=== PATIENT | male | born 1930 | race Caucasian/White ===

== ENCOUNTER 2016-05-11 17:42 | Emergency (ER) | payer MEDICARE, OTHER ==
[2016-05-11 17:43] VITALS: BMI 25.7
[2016-05-11 18:11] VITALS: TEMP 97.8
[2016-05-11] MEDS ORDERED: MORPHINE 4 MG/ML INJECTION IV ONE (18:16)
[2016-05-11] MEDS ORDERED: ONDANSETRON HCL 4 MG/2 ML VIAL IV ONE (18:16)
--- NOTE | 2016-05-11 18:45 | EDPRACDOC ---
- General Information Chief Complaint: Generalized Weakness Stated Complaint: RIB PAIN/WEAKNESS Time Seen by Provider: 05/11/16 18:01 Information Source: Patient, Administrative Office Manager Mode Of Arrival: Ambulance Home Medications: Home Medications Clopidogrel Bisulfate [Plavix] 75 mg PO HS 03/26/12 Rosuvastatin [Crestor] 10 mg PO HS 03/26/12 Ipratropium/Albuterol Sulfate [Combivent Inhaler] 1 puff INH QID PRN 05/27/12 Prednisone 5 mg PO DAILY 08/04/12 Nitroglycerin [Nitrostat] 0.4 mg SL Q5MX3 PRN 12/20/12 Albuterol/Ipratropium Neb [Duoneb] 3 ml NEB Q6H PRN 05/06/16 Aripiprazole [Abilify] 1 mg PO BID 05/06/16 Budesonide [Pulmicort] 0.5 mg INH BID PRN 05/06/16 Diltiazem HCl [Diltiazem ER] 120 mg PO HS 05/06/16 Ergocalciferol (Vitamin D2) [Vitamin D] 50,000 units PO Mo@0900 05/06/16 Guaifenesin [Humabid, Mucinex] 600 mg PO BID 05/06/16 Levothyroxine [Synthroid, Levoxyl] 88 mcg PO DAILY 05/06/16 Metoprolol Tartrate [Lopressor] 25 mg PO BID 05/06/16 Mirtazapine [Remeron] 30 mg PO HS 05/06/16 Nebulizer [Erapid Nebulizer] 1 each MC .UNKNOWN 05/06/16 Amoxicillin/Clavulanate Potas. [Augmentin] 875 mg PO BID 05/11/16 Hydrocodone/Acetaminophen [Lortab 5-325 mg Tablet] 1 each PO Q4H PRN #15 tablet 05/11/16 Tramadol HCl [Ultram] 25 mg PO BID PRN 05/11/16 Allergies/Adverse Reactions: Allergies Allergy/AdvReac Type Severity Reaction Status Date / Time aspirin Allergy Intermediate Difficulty Verified 05/11/16 18:41 Breathing azithromycin [From Zithromax] Allergy Intermediate Rash-Genera Verified 18:41 lized pregabalin [From Lyrica] Allergy Intermediate Hypotension Verified 05/11/16 18: 41 - History of Present Illness Onset: 05/06/16 HPI: PT FELL ON 05/06. HE SAID THAT HE BROKE MULTIPLE RIBS (RIGHT 4TH-8TH) AND HIS RIGHT INFERIOR AND SUPERIOR RAMI FX. THE PT SAID HE HAD INCREASED SOB TODAY SO HE CALLED EMS. Shortness of Breath: Mild Relevant History: Reports: None Cough: Reports: Non-productive Rhinorrhea: Reports: Clear Ear Symptoms: Reports: None SOB Worsens with: Reports: Exertion SOB Improves with: Reports: Nothing Associated Signs and symptoms: Reports: Cough - Treatment Prior to ED Arrival Reported Medications/Treatment THERAPY DIRECTOR EMS Treatment ALS,EKG IV Yes Comment CBG 148 ED Past Medical History - Patient Medical History Neurological History: Reports: Cerebrovascular Accident (Daughter denies). Denies: Dementia Cardiac History: Reports: Coronary Artery Disease, Hypertension, Congestive Heart Failure, Heart Attack, Cardiac Catheterization, Hypercholesterolemia Respiratory History: Reports: COPD GI/ History: Reports: Gastroesophageal Reflux Musculoskeletal History: Reports: Arthritis (hip), Gout (wrist) Psychological History: Reports: Depression, Anxiety Systemic History: Reports: Cancer (SKIN), Diabetes, Hypothyroidism Surgical History: Reports: Cardiac Catheterization, Tonsillectomy/Adnoidectomy - Family Medical History Reports: Hypertension (SISTER), Cancer (BROTHER), Stroke (SISTER) - Social Medical History Smoking Status: Never smoker ETOH: None Substance Abuse: None Lives In: Home EDM Review of Systems - Review of Systems ROS Negative Except as Marked: Yes All systems reviewed and were negative except as marked Respiratory: Shortness of Breath Musculoskeletal: Chestwall - Physical Exam Constitutional: Alert (Awake), No apparent distress Oriented to: Time, Person, Place Last recorded Vital Signs: Last Vital Signs Temp 97.8 F 05/11/16 17:56 Pulse 65 05/11/16 17:56 Resp 20 05/11/16 17:56 BP 154/70 05/11/16 17:56 Pulse Ox 97 05/11/16 17:56 Oxygen Pulse Oxygen Saturation 97 O2 Device Room Air Oxygen Flow Rate Fraction of Inspired Oxygen ( FIO2) - HEENT Head: Normal ( normocephalic) Eye Exam: Normal (PERRL, EOMI, Sclera white) Oropharynx: Normal (Pharynx:Moist without exudate,Gums-no swelling) ENT EAC: Normal TMJ: Normal Nose: No Symptoms Reported (septum midline) Neck: Normal (FROM, trachea at midline) - Respiratory/Cardiovascular Respiratory: Normal - CTA (BBS clear to auscultation without adventitious sounds ) Cardiovascular: Normal (RRR without murmur, gallop or rub) - GI Auscultation: Normal (NABS) Palpation: Normal (Soft,No rebound or guarding, non distended) Tenderness: Non tender Fung's Sign: Negative - Musculoskeletal Back: Normal (Non-Tender) Extremities: Normal (Normal tone, Pulses 2+ No cyanosis or edema, FROM) Musculoskeletal Comment: RIGHT SIDED CP - Integumentary Skin: Normal, Warm, Dry Lymphatics: Normal (no adenopathy) - Neurologic Memory Impaired: Normal Motor Function: Normal (Normal tone, Pulses 2+ No cyanosis or edema, FROM) Cranial Nerve: Normal (CN II-X11 intact sensation, strength 5/5) Cerebellar: Normal Mood Description: Normal Thought: Coherent Perception: Normal ED SOB MDM - Results Result Diagrams: 05/11/16 19:49 05/11/16 19:49 - EKG EKG #1 EKG Time: 19:07 -: Yes EKG interpreted by me Rate: bpm: 58 [place]: Normal Rhythm: SB Block: None Hypertrophy: None ST: Old, Ant, Normal Comparison: 01/26/16 - Diagnostic Imaging Hip Image interpreted by: Radiologist Diagnostic Imaging Comments: 1. Acute minimally displaced fracture involving the right inferior pubic ramus. No additional fractures identified. Further evaluation could be performed with pelvic MRI as clinically indicated. 2. 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 - Additional Information Additional Information: PT HAS 20 CATS AND DOES NOT WANT NH. I LEFT A MESSAGE WITH BILL LING) TO SET UP HOME HEALTH AND PT. Decision Time to Discharge: 20:44 - Departure Yes I personally saw and evaluated the patient. Disposition: Home Condition: Fair Final Diagnosis: Accidental fall, Ribs, multiple fractures, Pelvis fracture, right Instructions: Weakness (General), Pelvic Fracture (ED), Rib Fracture (ED) Education/Counseling Given To: Patient Education/Counseling Given Regarding: Diagnosis, Treatment, Follow Up Prescriptions: Hydrocodone/Acetaminophen [Lortab 5-325 mg Tablet] 1 each PO Q4H PRN #15 tablet PRN Reason: Pain
--- NOTE | 2016-05-11 18:51 | DIRPT ---
CLINICAL DATA: Post fall, now with right hip pain. EXAM: RIGHT HIP (WITH PELVIS) 2-3 VIEWS COMPARISON: Pelvic CT - 08/04/2012 FINDINGS: There is a minimally displaced fracture involving the right inferior pubic ramus. No additional displaced fractures are identified. Severe degenerative change of the right hip with near complete joint space loss, subchondral sclerosis and osteophytosis. No evidence of avascular necrosis. Similar severe degenerative change is seen within the contralateral left hip with associated axial migration. Suspected multilevel DDD within the imaged portions of the lower lumbar spine. Multiple phleboliths overlie the lower pelvis bilaterally. Adjacent vascular calcifications. IMPRESSION: 1. Acute minimally displaced fracture involving the right inferior pubic ramus. No additional fractures identified. Further evaluation could be performed with pelvic MRI as clinically indicated. 2. 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 Electronically Signed By: Hamzah Gilmore M.D. On: 05/11/2016 18:48
[2016-05-11] MEDS ORDERED: Pharmacy Review for Metformin - IV Contrast Given SCH (19:00)
[2016-05-11 19:57] LABS: LEUKOCYTES/URINE NEG (NEGATIVE); NITRITE/URINE NEG (NEGATIVE); RBC/URINE 0-2 (0-2); URINE OCCULT BLOOD NEG (NEG/TRACE); WBC/URINE 0-2 (0-2)
[2016-05-11 20:00] LABS: AUTOMATED BASOPHIL 0.4 % (0-2); AUTOMATED LYMPH 7.7 % (17-44); AUTOMATED MONOCYTE 9.4 % (3-10); AUTOMATED NEUTROPHIL 82.5 % (45-76); MPV 8.1 fL (7.4-10.4)
[2016-05-11 20:17] LABS: PARTIAL THROMB. TIME 24.8 SEC (22-35); PT-INR 1.1
[2016-05-11 20:20] LABS: BLOOD UREA NITROGEN 29 MG/DL (9-20); CALC CORRECTED 8.8 MG/DL (8.4-10.2); CALCIUM 8.3 MG/DL (8.4-10.2); CALCULATED OSMOLALITY 274 MOs/Kg (270-290); CHLORIDE 105 mEq/L (98-107); GLUCOSE 105 MG/DL (70-99); SODIUM LEVEL 139 mEq/L (137-146); TOTAL PROTEIN 6.8 G/DL (6.3-8.2)
--- NOTE | 2016-05-11 20:33 | DIRPT ---
CLINICAL DATA: Hypoxia. Recent rib fracture. EXAM: CT ANGIOGRAPHY CHEST WITH CONTRAST TECHNIQUE: Multidetector CT imaging of the chest was performed using the standard protocol during bolus administration of intravenous contrast. Multiplanar CT image reconstructions and MIPs were obtained to evaluate the vascular anatomy. CONTRAST: 80 mL Isovue 370 IV COMPARISON: Chest CT 5 days prior 05/06/2016 FINDINGS: There are no filling defects within the pulmonary arteries to suggest pulmonary embolus. Tortuous thoracic aorta with atherosclerosis, no acute aortic injury. Mild cardiomegaly. Coronary artery calcifications are seen. Minimal contrast refluxing into the IVC and hepatic veins. No pericardial effusion. No mediastinal or hilar adenopathy. Elevation of right hemidiaphragm is unchanged. Minimally displaced fractures of right anterior lateral fourth through seventh ribs. Previous eighth rib fracture not included in the field of view. No associated pneumothorax. Minimal adjacent pleural thickening at the fracture sites. No pulmonary contusion. Development of trace right pleural effusion. Increased atelectasis at the right lung base from prior. Scattered scarring throughout both lungs unchanged. Degenerative change in the thoracic spine without acute fracture. Review of the MIP images confirms the above findings. IMPRESSION: 1. No pulmonary embolus. 2. Acute minimally displaced right anterior lateral fourth through seventh rib fractures. Known eighth rib fracture not included in field of view. No pneumothorax. 3. Increased atelectasis in the right lower lobe with development of small right pleural effusion. 4. Minimal contrast refluxing into the hepatic veins and IVC, suggestive of right heart failure. Mild cardiomegaly and coronary artery calcifications are seen. Electronically Signed By: Niesha Tavares M.D. On: 05/11/2016 20:31
[2016-05-11 21:09] VITALS: BP 163/75; PULSE 60
== END 2016-05-11 21:00 | disposition home or self-care (01) ==
LOC: ED 17:42
DX: S22.43XA Multiple fractures of ribs, bilateral, initial encounter for closed fracture (principal); S32.591A Other specified fracture of right pubis, initial encounter for closed fracture; W18.30XA Fall on same level, unspecified, initial encounter
CPT/HCPCS: 36415; 71275; 73502; 80053; 81001; 84484; 85025; 85610; 85730; 93005; 96374; 96375; 99284; A9698; J2270; J2405

== ENCOUNTER 2016-06-09 17:26 | Inpatient (IN) | payer MEDICARE, OTHER ==
[2016-06-09] MEDS ORDERED: Albuterol/Ipratropium Neb 3 ML NEB NEB ONE (18:15)
[2016-06-09] MEDS ORDERED: METHYLPREDNISOLONE 125 MG/2 ML VIAL IV ONE (18:15)
--- NOTE | 2016-06-09 18:26 | DIRPT ---
CLINICAL DATA: Shortness of breath. EXAM: PORTABLE CHEST 1 VIEW COMPARISON: December 08, 2015. FINDINGS: The heart size and mediastinal contours are within normal limits. No pneumothorax or pleural effusion is noted. Right lung is clear. Elevated right hemidiaphragm is noted. Stable left lingular opacity is noted most consistent with scarring. The visualized skeletal structures are unremarkable. IMPRESSION: No acute cardiopulmonary abnormality seen. Electronically Signed By: Randy Simmons Jr, M.D. On: 06/09/2016 18:23
[2016-06-09 18:27] LABS: AUTOMATED BASOPHIL 0.6 % (0-2); AUTOMATED EOSINOPHIL 0.2 % (0-5); AUTOMATED LYMPH 23.1 % (17-44); AUTOMATED MONOCYTE 10.4 % (3-10); AUTOMATED NEUTROPHIL 65.7 % (45-76); MPV 7.9 fL (7.4-10.4)
[2016-06-09] MEDS: Diltiazem HCl 100 MG in D5W 100 ML IV SCH (18:39)
[2016-06-09 18:40] LABS: BLOOD UREA NITROGEN 29 MG/DL (9-20); CALCULATED OSMOLALITY 284 MOs/Kg (270-290); CHLORIDE 109 mEq/L (98-107); GLUCOSE 115 mg/dL (70-99); SODIUM LEVEL 144 mEq/L (137-146); TOTAL PROTEIN 6.9 G/DL (6.3-8.2)
[2016-06-09 18:45] LABS: PARTIAL THROMB. TIME 23.8 SEC (22-35); PT-INR 1.1
--- NOTE | 2016-06-09 19:22 | EDPRACDOC ---
- General Information Chief Complaint: Dyspnea/Resp distress Stated Complaint: CP SHOB HEART RATE 166 Time Seen by Provider: 06/09/16 17:55 Information Source: Patient, Family Mode Of Arrival: Car Home Medications: Home Medications Clopidogrel Bisulfate [Plavix] 75 mg PO HS 03/26/12 Rosuvastatin [Crestor] 10 mg PO HS 03/26/12 Ipratropium/Albuterol Sulfate [Combivent Inhaler] 1 puff INH QID PRN 05/27/12 Prednisone 5 mg PO DAILY 08/04/12 Nitroglycerin [Nitrostat] 0.4 mg SL Q5MX3 PRN 12/20/12 Albuterol/Ipratropium Neb [Duoneb] 3 ml NEB Q6H PRN 05/06/16 Aripiprazole [Abilify] 1 mg PO BID 05/06/16 Budesonide [Pulmicort] 0.5 mg INH BID PRN 05/06/16 Diltiazem HCl [Diltiazem ER] 120 mg PO HS 05/06/16 Ergocalciferol (Vitamin D2) [Vitamin D] 50,000 units PO Mo@0900 05/06/16 Guaifenesin [Humabid, Mucinex] 600 mg PO BID 05/06/16 Levothyroxine [Synthroid, Levoxyl] 88 mcg PO DAILY 05/06/16 Metoprolol Tartrate [Lopressor] 25 mg PO BID 05/06/16 Mirtazapine [Remeron] 30 mg PO HS 05/06/16 Nebulizer [Erapid Nebulizer] 1 each MC .UNKNOWN 05/06/16 Tramadol HCl [Ultram] 25 mg PO BID PRN 05/11/16 Allergies/Adverse Reactions: Allergies Allergy/AdvReac Type Severity Reaction Status Date / Time aspirin Allergy Intermediate Difficulty Verified 06/09/16 17:37 Breathing azithromycin [From Zithromax] Allergy Intermediate Rash-Genera Verified 17:37 lized pregabalin [From Lyrica] Allergy Intermediate Hypotension Verified 06/09/16 17: 37 - History of Present Illness Onset: SEVERAL DAYS HPI: INTERMITTENT SHOB AND RAPID HEART RATE. NO FEVER, NO COUGH. NO ALLEV OR AGG FACTORS. AT PCP OFFICE, HR ELEVATED, REFERRED TO ED. HAD RIGHT SIDE RIB FRACTURES 1 MONTH AGO. ED Past Medical History - History Reviewed Yes Nurses notes reviewed and agree except as marked - Patient Medical History Neurological History: Reports: Cerebrovascular Accident (Daughter denies). Denies: Dementia Cardiac History: Reports: Coronary Artery Disease, Hypertension, Congestive Heart Failure, Heart Attack, Cardiac Catheterization, Hypercholesterolemia Respiratory History: Reports: COPD GI/ History: Reports: Gastroesophageal Reflux Musculoskeletal History: Reports: Arthritis (hip), Gout (wrist) Psychological History: Reports: Depression, Anxiety Systemic History: Reports: Cancer (SKIN), Diabetes, Hypothyroidism Surgical History: Reports: Cardiac Catheterization, Tonsillectomy/Adnoidectomy - Family Medical History Reports: Hypertension (SISTER), Cancer (BROTHER), Stroke (SISTER) - Social Medical History Smoking Status: Never smoker ETOH: None Substance Abuse: None Lives With: Family Lives In: Home EDM Review of Systems - Review of Systems ROS Negative Except as Marked: Yes All systems reviewed and were negative except as marked ROS Unobtainable: Yes Review of systems cannot be obtained due to the patient's medical condition (PT IS A POOR HISORIAN.) - Physical Exam Constitutional: Alert, Cachectic, Distress (SHOB), Restless Oriented to: Time, Person, Place Last recorded Vital Signs: Last Vital Signs Temp Pulse 122 H 06/09/16 18:44 Resp 18 06/09/16 18:44 BP 98/69 L 06/09/16 18:44 Pulse Ox 98 06/09/16 18:44 Oxygen Pulse Oxygen Saturation 98 O2 Device Room Air Oxygen Flow Rate Fraction of Inspired Oxygen ( FIO2) - HEENT Head: Normal Eye Exam: Normal. negative: Edema, Pale Conjunctiva, Scleral Icterus Oropharynx: Normal. negative: Membranes Dry - Respiratory/Cardiovascular Respiratory: Accessory Muscle Use, Diminished, Tachypnea Cardiovascular: Tachycardia. negative: Diastolic murmur, Systolic murmur - GI Auscultation: Normal Palpation: Normal Tenderness: Non tender - Musculoskeletal Back: Normal Extremities: Normal. negative: Clubbing, Cyanosis, Pedal Edema - Integumentary Skin: Normal - Neurologic Memory Impaired: Normal Motor Function: Normal Cranial Nerve: Normal Mood Description: Normal, Anxious, Appropriate Thought: Coherent Perception: Normal ED SOB MDM - Re-evaluation Re-evaluation 3 Re-evaluation Time: 19:59 (HR 112, PT STILL DOING WELL) Re-evaluation 2 Re-evaluation Time: 18:45 (ON LOW DILT GTT, SBP 100-125, HR 120. PT DOING WELL AFTER NEB) - Results Result Diagrams: 06/09/16 17:58 06/09/16 17:58 Results: WBC 11.4 xk/uL (3.8-10.8) H 06/09/16 17:58 RBC 5.38 xM/uL (4.70-6.10) 06/09/16 17:58 Hgb 15.3 g/dL (14.0-18.0) 06/09/16 17:58 Hct 46.9 % (42-52) 06/09/16 17:58 MCV 87 fL (80-94) 06/09/16 17:58 MCH 28.5 pg (27-32) 06/09/16 17:58 MCHC 32.6 g/dl (33-36) L 06/09/16 17:58 RDW 16.5 % (11.5-14.5) H 06/09/16 17:58 Plt Count 282 xk/uL (130-400) 06/09/16 17:58 MPV 7.9 fL (7.4-10.4) 06/09/16 17:58 Neut % (Auto) 65.7 % (45-76) 06/09/16 17:58 Lymph % (Auto) 23.1 % (17-44) 06/09/16 17:58 [place] % (Auto) 10.4 % (3-10) H 06/09/16 17:58 Eos % (Auto) 0.2 % (0-5) 06/09/16 17:58 Baso % (Auto) 0.6 % (0-2) 06/09/16 17:58 Absolute Neuts (auto) 7.41 xk/uL (1.7-8.2) 06/09/16 17:58 Absolute Lymphs (auto) 2.62 xk/uL (0.65-4.75) 06/09/16 17:58 PT 11.0 SEC (9.2-11.2) 06/09/16 17:58 INR 1.1 06/09/16 17:58 APTT 23.8 SEC (22-35) 06/09/16 17:58 Sodium 144 mEq/L (137-146) 06/09/16 17:58 Potassium 2.9 mEq/L (3.5-5.1) L 06/09/16 17:58 Chloride 109 mEq/L (98-107) H 06/09/16 17:58 Carbon Dioxide 22 mMOL/L (22-33) 06/09/16 17:58 Anion Gap 16 mEq/L (8-16) 06/09/16 17:58 BUN 29 MG/DL (9-20) H 06/09/16 17:58 Creatinine 1.40 MG/DL (0.66-1.25) H 06/09/16 17:58 Estimated GFR (MDRD) 48 mL/min (>=60) L 06/09/16 17:58 Glucose 115 mg/dL (70-99) H 06/09/16 17:58 Calculated Osmolality 284 MOs/Kg (270-290) 06/09/16 17:58 Calcium 9.0 MG/DL (8.4-10.2) 06/09/16 17:58 Magnesium 2.00 MG/DL (1.6-2.3) 06/09/16 17:58 Total Bilirubin 0.6 MG/DL (0.2-1.3) 06/09/16 17:58 AST 27 IU/L (17-59) 06/09/16 17:58 ALT 28 IU/L (21-72) 06/09/16 17:58 Alkaline Phosphatase 283 IU/L (50-160) H 06/09/16 17:58 Troponin I 0.03 ng/mL (<.04) 06/09/16 17:58 Total Protein 6.9 G/DL (6.3-8.2) 06/09/16 17:58 Albumin 4.0 G/DL (3.5-5.0) 06/09/16 17:58 Lab Results 06/09/16 06/09/16 06/09/16 17:58 17:58 17:58 WBC 11.4 H RBC 5.38 Hgb 15.3 Hct 46.9 MCV 87 MCH 28.5 MCHC 32.6 L RDW 16.5 H Plt Count 282 MPV 7.9 Neut % (Auto) 65.7 Lymph % (Auto) 23.1 [place] % (Auto) 10.4 H Eos % (Auto) 0.2 Baso % (Auto) 0.6 Absolute Neuts (auto) 7.41 Absolute Lymphs (auto) 2.62 PT 11.0 INR 1.1 APTT 23.8 Sodium 144 Potassium 2.9 L Chloride 109 H Carbon Dioxide 22 Anion Gap 16 BUN 29 H Creatinine 1.40 H Estimated GFR (MDRD) 48 L Glucose 115 H Calculated Osmolality 284 Calcium 9.0 Magnesium 2.00 Total Bilirubin 0.6 AST 27 ALT 28 Alkaline Phosphatase 283 H Troponin I 0.03 Total Protein 6.9 Albumin 4.0 - EKG EKG #1 EKG Time: 17:37 -: Yes EKG interpreted by me Rate: bpm: 149 Prole: Normal Rhythm: Afib, Aflutter Block: None Hypertrophy: None ST: Nonsp Comparison: 05/11/16 EKG #2 EKG Time: 18:06 (DOUBLE SPEED) -: Yes EKG interpreted by me Rate: bpm: 128 Prole: Normal Rhythm: Afib, Aflutter Block: None Hypertrophy: None ST: Nonsp - Diagnostic Imaging Chest Image interpreted by: Radiologist Diagnostic Imaging Comments: Patient Name: LYLA KOENIG LOC: ED : 1930 AGE: 86 Order Date:06/09/16 Date of Service:07/21 Report # [id number] Ord Physician: Mary Sibley MD Exam # [id number] Emergency Physician: Mary Sibley MD Exam(s): [id number] RAD/DG CHEST PORTABLE CLINICAL DATA: Shortness of breath. EXAM: PORTABLE CHEST 1 VIEW COMPARISON: December 08, 2015. FINDINGS: The heart size and mediastinal contours are within normal limits. No pneumothorax or pleural effusion is noted. Right lung is clear. Elevated right hemidiaphragm is noted. Stable left lingular opacity is noted most consistent with scarring. The visualized skeletal structures are unremarkable. IMPRESSION: No acute cardiopulmonary abnormality seen. Electronically Signed By: Randy Simmons Jr, M.D. On: 06/09/2016 18:23 Electronically Signed By: Randy Simmons MD Electronically Signed Date/Time: [id number] Dictate Date/Time: 06/09/161819 Technologist: Radha Sheppard Transcribed By: Berenice Transcribed Date/Time: 06/09/16 182 - Additional Information Additional Information: OLD RECORDS REVIEWED, PT ON DILTIAZEM BUT NO HISTORY FOUND SUGGESTING AF. ED Critical Care Note - Critical Care Note Total Time (mins): 35 Comments: Due to the presence of and / or the risk of deterioration, my attendance to this patient required critical care time, including assessment/reassessment, documentation, ordering and interpreting ancillary studies, discussion with ED staff and consultants,patient and family, and excludes time spent on separately billable procedures. - Departure Disposition: Admit IP To This Hospital Condition: Stable Final Diagnosis: Acute exacerbation of chronic obstructive airways disease, New onset atrial fibrillation, Atrial fibrillation with rapid ventricular response Instructions: A-fib (Atrial Fibrillation) (ED) Education/Counseling Given To: Patient, Family Member Education/Counseling Given Regarding: Diagnosis, Treatment, Prognosis Referrals: Adelso Wood MD [Primary Care Provider] - One Week Prescriptions: No Action Rosuvastatin [Crestor] 10 mg PO HS Clopidogrel Bisulfate [Plavix] 75 mg PO HS Ipratropium/Albuterol Sulfate [Combivent Inhaler] 1 puff INH QID PRN PRN Reason: Shortness Of Breath Prednisone 5 mg PO DAILY Nitroglycerin [Nitrostat] 0.4 mg SL Q5MX3 PRN PRN Reason: Chest Pain Or Discomfort Ergocalciferol (Vitamin D2) [Vitamin D] 50,000 units PO Mo@0900 Budesonide [Pulmicort] 0.5 mg INH BID PRN PRN Reason: Shortness Of Breath Albuterol/Ipratropium Neb [Duoneb] 3 ml NEB Q6H PRN PRN Reason: Shortness Of Breath Metoprolol Tartrate [Lopressor] 25 mg PO BID Guaifenesin [Humabid, Mucinex] 600 mg PO BID Mirtazapine [Remeron] 30 mg PO HS Levothyroxine [Synthroid, Levoxyl] 88 mcg PO DAILY Aripiprazole [Abilify] 1 mg PO BID Diltiazem HCl [Diltiazem ER] 120 mg PO HS Nebulizer [Erapid Nebulizer] 1 each MC .UNKNOWN Tramadol HCl [Ultram] 25 mg PO BID PRN PRN Reason: Pain Forms: ED Discharge Instructions Decision to Admit Time: 19:22 Decision to admit date: 06/09/16 Decision to admit: from ED - Physician Consulted Hospitalist Time Called: 19:22 Provider Called: Denilson Carlson Time Skidder Operator Returned Call: 19:22
[2016-06-09] MEDS ORDERED: POTASSIUM CHLORIDE 20 MEQ TAB PO ONE (19:39)
--- NOTE | 2016-06-09 19:44 | HISTPHYS ---
- Chief Complaint not feeling well, short of breath - History of Present Illness PRIMARY CARE PROVIDER: Dr. Wood HPI: Patient is an 86-year-old man with atrial fibrillation, COPD who presents with not feeling well. The patient does not give a thorough history, so his daughter provides some of the history. His daughter states he seemed anxious and was pacing the floor yesterday, and in hindsight she thinks that is when his heart rate started going fast. He reports not feeling well "all over." He denies any chest pain but does have shortness of breath and palpitations along with nausea and vomiting. Onset: last night. Duration: intermittent. Location: all over. Radiation: none. Character: Fast heart rate. Generalized fatigue. Alleviated by: Nothing. Exacerbated by: Nothing. Associated Symptoms: Nausea. Vomiting. No abdominal pain. Shortness of breath. Coughing that is not productive. Wheezing. No chest pain. Not eating well. Headache. Treatments: none at home except usual medications. - Medical History Cardiac History: Reports: Coronary Artery Disease, Hypertension, Congestive Heart Failure, Heart Attack, Cardiac Catheterization, Hypercholesterolemia Respiratory History: Reports: COPD GI/ History: Reports: Gastroesophageal Reflux Musculoskeletal History: Reports: Arthritis (hip), Gout (wrist) Systemic History: Reports: Cancer (SKIN), Diabetes, Hypothyroidism Neurological History: Reports: Cerebrovascular Accident (Daughter denies). Denies: Dementia Psychological History: Reports: Depression, Anxiety - Surgical History Reports: Cardiac Catheterization, Tonsillectomy/Adnoidectomy - Medictions/Allergies Allergies aspirin Allergy (Intermediate, Verified 06/09/16 17:37) Difficulty Breathing azithromycin [From Zithromax] Allergy (Intermediate, Verified 06/09/16 17:37) Rash-Generalized pregabalin [From Lyrica] Allergy (Intermediate, Verified 06/09/16 17:37) Hypotension Current Medication List: Reviewed Home Medications Clopidogrel Bisulfate [Plavix] 75 mg PO HS 03/26/12 Rosuvastatin [Crestor] 10 mg PO HS 03/26/12 Ipratropium/Albuterol Sulfate [Combivent Inhaler] 1 puff INH QID PRN 05/27/12 Prednisone 5 mg PO DAILY 08/04/12 Nitroglycerin [Nitrostat] 0.4 mg SL Q5MX3 PRN 12/20/12 Albuterol/Ipratropium Neb [Duoneb] 3 ml NEB Q6H PRN 05/06/16 Aripiprazole [Abilify] 1 mg PO BID 05/06/16 Budesonide [Pulmicort] 0.5 mg INH BID PRN 05/06/16 Diltiazem HCl [Diltiazem ER] 120 mg PO HS 05/06/16 Ergocalciferol (Vitamin D2) [Vitamin D] 50,000 units PO Mo@0900 05/06/16 Guaifenesin [Humabid, Mucinex] 600 mg PO BID 05/06/16 Levothyroxine [Synthroid, Levoxyl] 88 mcg PO DAILY 05/06/16 Metoprolol Tartrate [Lopressor] 25 mg PO BID 05/06/16 Mirtazapine [Remeron] 30 mg PO HS 05/06/16 Nebulizer [Erapid Nebulizer] 1 each MC .UNKNOWN 05/06/16 Tramadol HCl [Ultram] 25 mg PO BID PRN 05/11/16 - Family History Reports: Hypertension (SISTER), Cancer (BROTHER), Stroke (SISTER) - Social History Lives: With Family (with daughter) Smoking Status: Never smoker Social History: Denies: Alcohol Use, Substance Use Disorder - Review of Systems GENERAL: No Fever, chills, or diaphoresis. Positive for fatigue/malaise. Not eating well. HEENT: No nasal discharge or bleeding. No throat pain or swelling. No eye pain or eye redness. RESPIRATORY: Cough, wheezing, and shortness of breath. CARDIOVASCULAR: No chest pain. Has palpitations. GI: Has nausea, vomiting. No abdominal pain, diarrhea, constipation, or bloody stool. NEUROLOGICAL: Headache. No focal weakness. INTEGUMENT: no rashes, itching, or lesions. LYMPHATIC SYSTEM: no lymph node swelling or pain. MUSCULOSKELETAL: no new pain or joint swelling. GENITOURINARY: No dysuria or hematuria. ENDOCRINE: No polyuria or polydipsia. HEME: No chronic anemia, bleeding, or easy bruising. - Physical Exam Vital Signs: Initial Vitals Pulse Oxygen Saturation 89 L 06/09/16 17:30 Vital Signs - 24 hr 06/09/16 06/09/16 06/09/16 17:30 17:45 18:44 Pulse Rate 145 H 122 H Respiratory 20 18 Rate Blood Pressure 119/81 98/69 L Pulse Oxygen 89 L 96 98 Saturation 06/09/16 19:33 Pulse Rate 114 Respiratory 20 Rate Blood Pressure 134/76 Pulse Oxygen 94 Saturation Tempt: 99.5 degrees F Weight: 70.3 kg Height: 5 feet 5 inches BMI: 25.8 - Other Exam Other Exam Findings: GENERAL: Ill-appearing, well nourished, in acute distress. HEENT: Normocephalic, atraumatic; pupils equal and round. Nares patent, without discharge or bleeding. No oropharyngeal lesions or erythema. Mucous membranes are dry. NECK: is supple, no masses, trachea midline. RESPIRATORY: Clear to auscultation bilaterally. Chest wall movements are symmetric. No use of accessory muscles to breathe. Intermittent tachypnea. Scattered wheezing. No rales, rhonchi. CARDIOVASCULAR: Normal S1, S2. Irregular. Murmur 2/6 systolic. No rubs, or gallops. PMI non-displaced. Carotids: no carotid bruits. Tachycardia. DP pulses 1-2+ bilaterally. GI: soft, non-distended, normal active bowel sounds. No hepatosplenomegaly. Mild epigastric and right upper quadrant tenderness. INTEGUMENT: Clean, dry, and intact. No rashes. MUSCULOSKELETAL: Moving all extremities. No cyanosis. No clubbing. Edema: none bilaterally. NEUROLOGICAL: Cranial nerves 2-12 grossly intact. Motor 4-/5 throughout. Reflexes: 2+ bilaterally. Babinski: toes downgoing bilaterally. Intact Finger to nose. Sensory grossly intact to light touch. Intact rapid alternating movements bilaterally. No pronator drift. PSYCHIATRIC: Oriented to person and place. Normal and appropriate affect. LYMPHATIC: No cervical lymphadenopathy. No supraclavicular lymphadenopathy. - Lab Results Laboratory Results - last 24 hr 06/09/16 06/09/16 06/09/16 17:58 17:58 17:58 WBC 11.4 H RBC 5.38 Hgb 15.3 Hct 46.9 MCV 87 MCH 28.5 MCHC 32.6 L RDW 16.5 H Plt Count 282 MPV 7.9 Neut % (Auto) 65.7 Lymph % (Auto) 23.1 Beadle % (Auto) 10.4 H Eos % (Auto) 0.2 Baso % (Auto) 0.6 Absolute Neuts (auto) 7.41 Absolute Lymphs (auto) 2.62 PT 11.0 INR 1.1 APTT 23.8 Sodium 144 Potassium 2.9 L Chloride 109 H Carbon Dioxide 22 Anion Gap 16 BUN 29 H Creatinine 1.40 H Estimated GFR (MDRD) 48 L Glucose 115 H Calculated Osmolality 284 Calcium 9.0 Magnesium 2.00 Total Bilirubin 0.6 AST 27 ALT 28 Alkaline Phosphatase 283 H Troponin I 0.03 Total Protein 6.9 Albumin 4.0 - Diagnostic Findings EK beats per minute. Atrial fibrillation vs accelerated junctional rhythm. Possible anterior infarct, age undetermined. Reviewed EKG personally. EKG #2: 149 bpm. Supraventricular tachycardia. Anterior infarct, age undetermined. T wave inversion in lead 3. Reviewed EKG personally. Chest x-ray, viewed personally: CLINICAL DATA: Shortness of breath. EXAM: PORTABLE CHEST 1 VIEW COMPARISON: December 08, 2015. FINDINGS: The heart size and mediastinal contours are within normal limits. No pneumothorax or pleural effusion is noted. Right lung is clear. Elevated right hemidiaphragm is noted. Stable left lingular opacity is noted most consistent with scarring. The visualized skeletal structures are unremarkable. IMPRESSION: No acute cardiopulmonary abnormality seen. PREVIOUS IMAGING: CTA Chest, 05/11/16: CLINICAL DATA: Hypoxia. Recent rib fracture. EXAM: CT ANGIOGRAPHY CHEST WITH CONTRAST TECHNIQUE: Multidetector CT imaging of the chest was performed using the standard protocol during bolus administration of intravenous contrast. Multiplanar CT image reconstructions and MIPs were obtained to evaluate the vascular anatomy. CONTRAST: 80 mL Isovue 370 IV COMPARISON: Chest CT 5 days prior 05/06/2016 FINDINGS: There are no filling defects within the pulmonary arteries to suggest pulmonary embolus. Tortuous thoracic aorta with atherosclerosis, no acute aortic injury. Mild cardiomegaly. Coronary artery calcifications are seen. Minimal contrast refluxing into the IVC and hepatic veins. No pericardial effusion. No mediastinal or hilar adenopathy. Elevation of right hemidiaphragm is unchanged. Minimally displaced fractures of right anterior lateral fourth through seventh ribs. Previous eighth rib fracture not included in the field of view. No associated pneumothorax. Minimal adjacent pleural thickening at the fracture sites. No pulmonary contusion. Development of trace right pleural effusion. Increased atelectasis at the right lung base from prior. Scattered scarring throughout both lungs unchanged. Degenerative change in the thoracic spine without acute fracture. Review of the MIP images confirms the above findings. IMPRESSION: 1. No pulmonary embolus. 2. Acute minimally displaced right anterior lateral fourth through seventh rib fractures. Known eighth rib fracture not included in field of view. No pneumothorax. 3. Increased atelectasis in the right lower lobe with development of small right pleural effusion. 4. Minimal contrast refluxing into the hepatic veins and IVC, suggestive of right heart failure. Mild cardiomegaly and coronary artery calcifications are seen. - Assessment (1) Atrial fibrillation with rapid ventricular response I48.91 - UNSPECIFIED ATRIAL FIBRILLATION Acute Present on Admission: Yes Patient has chronic a fib but has an acute worsening, wih heart rates of 150- 180 in the emergency department. Plan: Admit. Telemetry. IV diltiazem gtt. Continue home medications. Replace potassium and check magnesium. (2) Hypokalemia E87.6 - HYPOKALEMIA Resolved Present on Admission: Yes Replaced potassium with KCl. magnesium level is normal. (3) Nausea and vomiting R11.2 - NAUSEA WITH VOMITING, UNSPECIFIED Acute Present on Admission: Yes PRN Zofran and Phenergan. (4) Elevated alkaline phosphatase level R74.8 - ABNORMAL LEVELS OF OTHER SERUM ENZYMES Acute Present on Admission: Yes With nausea and vomiting. Could have acute cholecystitis, but cardiac issues need to be addressed first. Plan: Monitor. Consider ultrasound of abdomen. (5) COPD (chronic obstructive pulmonary disease) J44.9 - CHRONIC OBSTRUCTIVE PULMONARY DISEASE, UNSPECIFIED Acute Present on Admission: Yes Qualifiers: COPD type: emphysema Emphysema type: centrilobular Qualified Code(s): J43.2 - Centrilobular emphysema Plan: Duoneb scheduled. PRN Albuterol. Likely at baseline, so will not order methylprednisolone at this time. - Plan (1) Atrial fibrillation with rapid ventricular response I48.91 - UNSPECIFIED ATRIAL FIBRILLATION Acute Present on Admission: Yes Patient has chronic a fib but has an acute worsening, wih heart rates of 150- 180 in the emergency department. Plan: Admit. Telemetry. IV diltiazem gtt. Continue home medications. Replace potassium and check magnesium. (2) Hypokalemia E87.6 - HYPOKALEMIA Acute Present on Admission: Yes Replace potassium with KCl. Check magnesium level and replace as needed. (3) Nausea and vomiting R11.2 - NAUSEA WITH VOMITING, UNSPECIFIED Acute PRN Zofran and Phenergan. (4) Elevated alkaline phosphatase level R74.8 - ABNORMAL LEVELS OF OTHER SERUM ENZYMES Acute With nausea and vomiting. Could have acute cholecystitis, but cardiac issues need to be addressed first. Plan: Monitor. Consider ultrasound of abdomen. (5) COPD (chronic obstructive pulmonary disease) J44.9 - CHRONIC OBSTRUCTIVE PULMONARY DISEASE, UNSPECIFIED Acute Plan: Duoneb scheduled. PRN Albuterol. Likely at baseline, so will not order methylprednisolone at this time. Case Care Discussed with: Patient, Family, Nursing Staff Total Time: 65 min
[2016-06-09 20:15] LABS: ALLEN'S TEST PASS; BEb -2.1 (+/- 2); TCO2 20.3 MMOL/L (23-27)
[2016-06-09 20:16] LABS: ABG Draw Site Left Radial
[2016-06-09] MEDS ORDERED: Vaccine Screening Complete SCH (23:00)
[2016-06-09] MEDS: POTASSIUM CHLORIDE 20 MEQ TAB PO SCH (23:35)
[2016-06-10] MEDS ORDERED: NITROGLYCERINE 0.4 MG TAB SL PRN (00:47)
[2016-06-10] MEDS ORDERED: TRAMADOL HCL 50 MG TAB PO PRN (00:47)
[2016-06-10] MEDS ORDERED: ACETAMINOPHEN 325 MG/TAB TABLET PO PRN (00:50)
[2016-06-10] MEDS ORDERED: ACETAMINOPHEN 325 MG SUPP PR PRN (00:50)
[2016-06-10] MEDS ORDERED: SIMETHICONE 80 MG TAB PO PRN (00:50)
[2016-06-10] MEDS ORDERED: BENZONATATE 100 MG PERLES PO PRN (00:50)
[2016-06-10] MEDS ORDERED: Docusate Sodium 100 MG CAP PO PRN (00:50)
[2016-06-10] MEDS ORDERED: BISACODYL 5 MG TAB PO PRN (00:50)
[2016-06-10] MEDS ORDERED: PROMETHAZINE 25 MG/ML VIAL IV PRN (00:50)
[2016-06-10] MEDS ORDERED: SENNA CONCENTRATE TAB PO PRN (00:50)
[2016-06-10] MEDS ORDERED: GUAIFEN 100 MG-DEXTROMETH 10 MG PER 5 ML PO PRN (00:50)
[2016-06-10] MEDS ORDERED: ONDANSETRON HCL 4 MG/2 ML VIAL IV PRN (00:50)
[2016-06-10] MEDS ORDERED: ALBUTEROL 0.083% 3 ML NEB NEB PRN (00:59)
[2016-06-10] MEDS ORDERED: NS/KCl 20 mEq 1,000 ML IV SCH (01:00)
[2016-06-10] MEDS: Albuterol/Ipratropium Neb 3 ML NEB NEB SCH ×4 (01:40→19:56)
[2016-06-10] MEDS: POTASSIUM CHLORIDE 20 MEQ TAB PO SCH ×2 (01:51→04:18)
[2016-06-10] MEDS ORDERED: Diltiazem HCl 100 MG in D5W 100 ML IV SCH (03:09)
[2016-06-10 05:32] LABS: MPV 7.8 fL (7.4-10.4)
[2016-06-10 05:37] LABS: BLOOD UREA NITROGEN 28 MG/DL (9-20); CALC CORRECTED 9.4 MG/DL (8.4-10.2); CALCIUM 8.8 MG/DL (8.4-10.2); CALCULATED OSMOLALITY 274 MOs/Kg (270-290); CHLORIDE 108 mEq/L (98-107); GLUCOSE 135 mg/dL (70-99); PT-INR 1.1; SODIUM LEVEL 138 mEq/L (137-146); TOTAL PROTEIN 5.9 G/DL (6.3-8.2)
[2016-06-10] MEDS: Diltiazem HCl 100 MG in D5W 100 ML IV SCH (05:59)
[2016-06-10] MEDS ORDERED: BUDESONIDE 0.5 MG NEB NEB ONE (07:57)
[2016-06-10] MEDS ORDERED: BUDESONIDE 0.5 MG NEB NEB SCH (08:00)
[2016-06-10] MEDS: BUDESONIDE 0.5 MG NEB NEB SCH ×2 (08:01→19:57)
--- NOTE | 2016-06-10 08:50 | GENMEDPROG ---
Chief Complaint: [place] reg rhythm Notes Reviewed: Yes: Events from last night noted and discussed with Clinical Staff Current Medication List: Reviewed DVT Prophylaxis: Yes - Physical Examination Vital Signs and I&O: Last Vital Signs Temp 97.9 F 06/10/16 07:00 Pulse 94 06/10/16 08:00 Resp 18 06/10/16 07:00 BP 105/58 L 06/10/16 08:00 Pulse Ox 98 06/10/16 08:02 Oxygen Pulse Oxygen Saturation 98 O2 Device Room Air Oxygen Flow Rate Fraction of Inspired Oxygen ( FIO2) Intake & Output 06/07/16 06/08/16 06/09/16 06/10/16 23:59 23:59 23:59 23:59 Intake Total 7 686 Output Total 500 Balance 7 186 Patient's weight 61.348 kg 61.348 kg General: Alert, Cooperative, No acute distress. negative: Obese HEENT: Normal (Normocephalic, atraumatic;EOMI.Sclera white, Nares patent, without discharge or bleeding. No oropharyngeal lesions or erythema. Mucous membranes are dry.) Neck: Non-tender, Full range of motion, Normal Trachea alignment, Normal inspection (No cervical lymphadenopathy. No supraclavicular lymphadenopathy.), No Masses palpable, Supple Lymphatics: Normal (No lymph node swelling or pain.) Respiratory: Accessory Muscle Use, Diminished, Tachypnea Cardiovascular: Regular rate and rhythm (No bradycardia or tachycardia), Normal S1, No Gallops,Rubs/Murmurs, Normal S2, Good Pedal Pulses (DP pulses 2+ bilaterally) GI: Normal bowel sounds (normal active sounds), Soft (non-distended), Non tender , No hepatospenomegaly, No masses Extremities/Musculoskeletal: Normal pulses (DP pulses 2+ bilaterally) Skin: Warm,Dry and Intact, No rashes, No significant lesion Neurological: Strength at 5/5 X4 ext (Motor 5/5 throughout.), Normal tone, Cranial nerves 3-12 NL ( 2-12 grossly intact.) Psych/Mental Status: Appropriate, Normal Affect Lab/DI/Studies Reviewed: 06/10/16 05:00 06/10/16 05:00 Laboratory Results - last 24 hr 06/09/16 06/09/16 06/09/16 17:58 17:58 17:58 WBC 11.4 H RBC 5.38 Hgb 15.3 Hct 46.9 MCV 87 MCH 28.5 MCHC 32.6 L RDW 16.5 H Plt Count 282 MPV 7.9 Neut % (Auto) 65.7 Lymph % (Auto) 23.1 Ware % (Auto) 10.4 H Eos % (Auto) 0.2 Baso % (Auto) 0.6 Absolute Neuts (auto) 7.41 Absolute Lymphs (auto) 2.62 PT 11.0 INR 1.1 APTT 23.8 Puncture Site pH pCO2 pO2 HCO3 Total CO2 Base Excess FiO2 % Specimen Drawn By Sodium 144 Potassium 2.9 L Chloride 109 H Carbon Dioxide 22 Anion Gap 16 BUN 29 H Creatinine 1.40 H Estimated GFR (MDRD) 48 L Glucose 115 H Calculated Osmolality 284 Calcium 9.0 Corrected Calcium Magnesium 2.00 Total Bilirubin 0.6 AST 27 ALT 28 Alkaline Phosphatase 283 H Troponin I 0.03 Total Protein 6.9 Albumin 4.0 06/09/16 06/09/16 06/09/16 20:11 20:55 20:55 WBC RBC Hgb Hct MCV MCH MCHC RDW Plt Count MPV Neut % (Auto) Lymph % (Auto) Ware % (Auto) Eos % (Auto) Baso % (Auto) Absolute Neuts (auto) Absolute Lymphs (auto) PT INR APTT Puncture Site Left radial pH 7.500 H pCO2 25.0 L pO2 80.0 HCO3 19.5 L Total CO2 20.3 L Base Excess -2.1 L FiO2 % 21 Specimen Drawn By Kaytr Sodium Potassium Chloride Carbon Dioxide Anion Gap BUN Creatinine Estimated GFR (MDRD) Glucose Calculated Osmolality Calcium Corrected Calcium Magnesium 2.00 Total Bilirubin AST ALT Alkaline Phosphatase Troponin I 0.03 Total Protein Albumin 06/09/16 06/10/16 06/10/16 23:45 05:00 05:00 WBC 5.1 RBC 4.74 Hgb 13.6 L D Hct 41.8 L MCV 88 MCH 28.7 MCHC 32.6 L RDW 16.6 H Plt Count 236 MPV 7.8 Neut % (Auto) Lymph % (Auto) Ware % (Auto) Eos % (Auto) Baso % (Auto) Absolute Neuts (auto) Absolute Lymphs (auto) PT INR APTT Puncture Site pH pCO2 pO2 HCO3 Total CO2 Base Excess FiO2 % Specimen Drawn By Sodium 138 Potassium 5.4 H D Chloride 108 H Carbon Dioxide 21 L Anion Gap 14 BUN 28 H Creatinine 1.10 Estimated GFR (MDRD) > 60 Glucose 135 H Calculated Osmolality 274 Calcium 8.8 Corrected Calcium 9.4 Magnesium Total Bilirubin 0.4 AST 17 ALT 35 Alkaline Phosphatase 234 H Troponin I 0.04 Total Protein 5.9 L Albumin 3.4 L 06/10/16 05:00 WBC RBC Hgb Hct MCV MCH MCHC RDW Plt Count MPV Neut % (Auto) Lymph % (Auto) Ware % (Auto) Eos % (Auto) Baso % (Auto) Absolute Neuts (auto) Absolute Lymphs (auto) PT 11.2 INR 1.1 APTT Puncture Site pH pCO2 pO2 HCO3 Total CO2 Base Excess FiO2 % Specimen Drawn By Sodium Potassium Chloride Carbon Dioxide Anion Gap BUN Creatinine Estimated GFR (MDRD) Glucose Calculated Osmolality Calcium Corrected Calcium Magnesium Total Bilirubin AST ALT Alkaline Phosphatase Troponin I Total Protein Albumin - Assessment (1) New onset atrial fibrillation Acute I48.91 - UNSPECIFIED ATRIAL FIBRILLATION Comment/Plan: Back into sinus rhythm now on Cardizem IV and p.o.. IV Cardizem discontinued. Check TSH (2) Elevated alkaline phosphatase level Acute R74.8 - ABNORMAL LEVELS OF OTHER SERUM ENZYMES Comment/Plan: Check gallbladder ultrasound. Had nausea vomiting which is now improved. (3) Hypothyroidism Chronic E03.9 - HYPOTHYROIDISM, UNSPECIFIED Qualifiers: Hypothyroidism type: acquired Qualified Code(s): E03.9 - Hypothyroidism, unspecified Comment/Plan: Synthroid replacement is ordered. Check TSH if suppressed would worry that he is getting too much Synthroid with the atrial fib. 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 (6) Hypokalemia Resolved E87.6 - HYPOKALEMIA Comment/Plan: Replaced potassium with KCl. magnesium level is normal. Case Care Discussed with: Patient, Nursing Staff Education/Counseling Given To: Patient Education/Counseling Given Regarding: Diagnosis Total Time: 39 min Critical Care: No Code: 88170 (12+)
[2016-06-10] MEDS: ARIPIPRAZOLE 2 MG TAB PO SCH ×2 (08:54→21:04)
[2016-06-10] MEDS: GUAIFENESIN 600 MG LA TAB PO SCH ×2 (08:54→21:04)
[2016-06-10] MEDS: PREDNISONE 5 MG TAB PO SCH (08:54)
[2016-06-10] MEDS: DILTIAZEM HCL 120 MG CAPSULE.CR PO SCH (08:54)
[2016-06-10] MEDS: LEVOTHYROXINE 88 MCG (0.088 MG) TAB PO SCH (08:55)
[2016-06-10] MEDS ORDERED: METOPROLOL TARTRATE 25 MG TAB PO SCH (09:00)
[2016-06-10] MEDS ORDERED: SODIUM CHLORIDE 0.9% 3 ML FLUSH FLUSH PRN (09:24)
--- NOTE | 2016-06-10 11:55 | PCM.CARDCO ---
Consultation Date: 06/10/16 Requesting Physician: Gonzales Aguilar (afib/rvr) Consulting Doctor: Bravo oGnzales Travel Outside of [place] in the Last 3 Months?: No Consultation Note: History of Present Illness: The pt is a 86 yo WM followed primarily by Dr. Wood (last seen Nov), for problems dominated by COPD with secondary pulm hypertension, sleep apnea, HBP and CAD. Was stable at last CArdiology f/u with Dr. Roger in 2014. On interview today. Pt is a poor historian, brought to ER by daughter he lives with. States he feels "rough" today, but denies pain any location. Breathing "ok". ER records detail recent incr SOB, tachycardia documented in PCP office and pt sent to ER.. Past Medical History: First sentence of HPI. Also hx of esophageal stricture and reflux. Past Surgical History: tonsillectomy Allergies aspirin Allergy (Intermediate, Verified 06/09/16 17:37) Difficulty Breathing azithromycin [From Zithromax] Allergy (Intermediate, Verified 06/09/16 17:37) Rash-Generalized pregabalin [From Lyrica] Allergy (Intermediate, Verified 06/09/16 17:37) Hypotension Home Medications Clopidogrel Bisulfate [Plavix] 75 mg PO HS 03/26/12 Rosuvastatin [Crestor] 10 mg PO HS 03/26/12 Ipratropium/Albuterol Sulfate [Combivent Inhaler] 1 puff INH QID PRN 05/27/12 Prednisone 5 mg PO DAILY 08/04/12 Nitroglycerin [Nitrostat] 0.4 mg SL Q5MX3 PRN 12/20/12 Albuterol/Ipratropium Neb [Duoneb] 3 ml NEB Q6H PRN 05/06/16 Aripiprazole [Abilify] 1 mg PO BID 05/06/16 Budesonide [Pulmicort] 0.5 mg INH BID PRN 05/06/16 Diltiazem HCl [Diltiazem ER] 120 mg PO HS 05/06/16 Ergocalciferol (Vitamin D2) [Vitamin D] 50,000 units PO Mo@0900 05/06/16 Guaifenesin [Humabid, Mucinex] 600 mg PO BID 05/06/16 Levothyroxine [Synthroid, Levoxyl] 88 mcg PO DAILY 12/31/16 Metoprolol Tartrate [Lopressor] 25 mg PO BID 05/06/16 Mirtazapine [Remeron] 30 mg PO HS 05/06/16 Nebulizer [Erapid Nebulizer] 1 each MC .UNKNOWN 05/06/16 Tramadol HCl [Ultram] 25 mg PO BID PRN 05/11/16 Family History: + cad; sister with COPD; brother with laryngeal CA Social History: Traveled outside the [place] in the last 3 months? No Never smoker States he lives with daughter Review of Systems: Pt unable to provide meaningful/reliable ROS Physical Examination: Temperature: 97.9 F (06/10/16 07:00)HR: 100 (06/10/16 10:00)RR: 18 (06/10/16 07 :00)BP: 105/58 (06/10/16 08:00) SAT:98 (06/10/16 08:02) [] Physical Exam GEN: Frail, elderly, alvaro OOB ok. Short tubbs VS: as above HEENT: difficult to asses neck veins. Carotids 2+ bilat CHEST: diffuse wheeze, mild exp prolongation COR: RR, no s3. Gr 1/6 OSMANI ABD: soft, no distention EXTREM: rad, PT 2+ bilat, no edema or clubbing SKIN: warm, dry , fragile NEURO: alert, oriented to place, no focal deficit or tremor LAB/DI: [] Laboratory Tests 06/09/16 06/09/16 06/09/16 17:58 17:58 20:11 WBC 11.4 H Hgb 15.3 Hct 46.9 Plt Count 282 pH 7.500 H pCO2 25.0 L pO2 80.0 HCO3 19.5 L FiO2 % 21 Sodium Potassium Chloride Carbon Dioxide BUN Creatinine Estimated GFR (MDRD) AST ALT Troponin I 0.03 TSH 06/09/16 06/09/16 06/10/16 20:55 23:45 05:00 WBC Hgb Hct Plt Count pH pCO2 pO2 HCO3 FiO2 % Sodium 138 Potassium 5.4 H D Chloride 108 H Carbon Dioxide 21 L BUN 28 H Creatinine 1.10 Estimated GFR (MDRD) > 60 AST 17 ALT 35 Troponin I 0.03 0.04 TSH 06/10/16 05:00 WBC Hgb Hct Plt Count pH pCO2 pO2 HCO3 FiO2 % Sodium Potassium Chloride Carbon Dioxide BUN Creatinine Estimated GFR (MDRD) AST ALT Troponin I TSH 0.28 L CXR: no acute cardiopulmonary abnormality EKG in ER; reg tachycardia at 150/min, probalby flutter 2:1, left axis deviation, no ST shift during tachycardia Given diltiazem drip in ER, rate immediately normalized tele: pt reverted to NSR shortly after admission Past cardiac testing: Perfusion stress: 01/2016: small fixed posterior defect, probalby attenuation artifact no reversible hypoperfusion, EF 60% Last echo 2011: normal biventricular function, mild MR, Cath 2009: LM, LAD normal. Occluded OM1 branch of LCx. Minor disease in RCA. IMPRESSION: - exacerbation of COPD - paroxysm of atrial flutter/RVR not unexpected given long hx COPD/NERISSA - no active ischemia - Recommendations PLAN: obtain f/u echo for prognosis in AM Will start po amio load to suppress recurrent flutter. Full anticoag, at least short term, pending observation for recurrent flutter Consider lower levothyroxine dose Anticipate con't f/u Dr. Wood, and I'll be happy to see in f/u as well.
[2016-06-10] MEDS: AMIODARONE 200 MG TAB PO SCH ×2 (15:21→21:03)
[2016-06-10] MEDS: SODIUM CHLORIDE 0.9% 3 ML FLUSH FLUSH SCH (16:47)
[2016-06-10] MEDS ORDERED: ENOXAPARIN 40 MG/0.4 ML PFS SQ SCH (18:00)
--- NOTE | 2016-06-10 18:24 | DIRPT ---
CLINICAL DATA: Elevated alkaline phosphatase, nausea for several weeks EXAM: US ABDOMEN LIMITED - RIGHT UPPER QUADRANT COMPARISON: None. FINDINGS: Gallbladder: No gallstones or wall thickening visualized. No sonographic Fung sign noted by it help desk analyst. Common bile duct: Diameter: 3 mm Liver: Extremely limited evaluation of the liver due to coarsened echotexture. Patient unable to hold breath. Body habitus also limits the study. IMPRESSION: Moderately limited study. No acute findings. Hepatic steatosis. Electronically Signed By: Robin Garcia M.D. On: 06/10/2016 18:21
[2016-06-10] MEDS ORDERED: DILTIAZEM HCL 120 MG PO SCH (21:00)
[2016-06-10] MEDS ORDERED: Non-Formulary Medication ITEM (Mirtazapine [Remeron] 30 MG) PO SCH (21:00)
[2016-06-10] MEDS: APIXABAN 5 MG TABLET PO SCH (21:03)
[2016-06-10] MEDS: CLOPIDOGREL 75 MG TAB PO SCH (21:03)
[2016-06-10] MEDS: ROSUVASTATIN 10 MG TAB PO SCH (21:03)
[2016-06-10] MEDS: TEMAZEPAM 15 MG CAP PO PRN (21:04)
[2016-06-10] MEDS: MIRTAZAPINE 15 MG TAB PO SCH (21:04)
[2016-06-11] MEDS: Albuterol/Ipratropium Neb 3 ML NEB NEB SCH ×4 (01:35→19:27)
[2016-06-11] MEDS: SODIUM CHLORIDE 0.9% 3 ML FLUSH FLUSH SCH ×2 (06:45→17:45)
[2016-06-11] MEDS: AMIODARONE 200 MG TAB PO SCH ×3 (06:45→21:53)
[2016-06-11] MEDS: BUDESONIDE 0.5 MG NEB NEB SCH ×2 (08:13→19:30)
[2016-06-11] MEDS: LEVOTHYROXINE 88 MCG (0.088 MG) TAB PO SCH (09:48)
[2016-06-11] MEDS: DILTIAZEM HCL 120 MG CAPSULE.CR PO SCH (09:48)
[2016-06-11] MEDS: PREDNISONE 5 MG TAB PO SCH (09:48)
[2016-06-11] MEDS: APIXABAN 5 MG TABLET PO SCH ×2 (09:48→21:53)
[2016-06-11] MEDS: ARIPIPRAZOLE 2 MG TAB PO SCH ×2 (09:49→21:54)
[2016-06-11] MEDS: GUAIFENESIN 600 MG LA TAB PO SCH ×2 (09:49→21:53)
--- NOTE | 2016-06-11 10:10 | CAPUECHO ---
INDICATION: PAROX ATRIAL FLUTTER, COPD HEIGHT: 165.1 cm (5 ft 5.0 in) WEIGHT: 61.2 kg (135.0 lbs) BP: 130/71 BSA: 1.98957 m MEASUREMENTS 2D RVIDd: 3.9 cm LVOT Diam: 2.0 cm LAESV MOD A4C: 46.2 ml M-MODE IVSd: 1.0 cm LVIDd: 5.2 cm LVPWd: 0.9 cm LVIDs: 3.4 cm EF(Teich): 65 % Ao Diam: 3.7 cm LA Diam: 4.4 cm DOPPLER MV E Luis Enrique: 0.74 m/s MV A Luis Enrique: 1.04 m/s MV PHT: 42.43 ms MVA By PHT: 5.18 cm LVOT Vmax: 0.92 m/s AV Vmax: 1.46 m/s ART Vmax, Pt: 1.96 cm TR Vmax: 2.22 m/s TR maxP mmHg RVSP: 34.52 mmHg FINDINGS ------- Procedure:2D images, m-mode, color and spectral Doppler were obtained and reviewed. ECG rhythm:Sinus rhythm. Study quality:This was a technically difficult study with suboptimal views. Patient confused. Unab le to get in touch with daughter to get consent for Definity contrast to be used. No apical 2 chamb er viewed and no clear subcostal and no IVC views obtained. Left Ventricle:There is borderline concentric left ventricular hypertrophy, good contracility in all visualized segments, an EF between 60 - 65 %. The diastolic filling pattern indicates impaired re laxation. Right Ventricle:The right ventricle is borderline enlarged. Left Atrium:The left atrium is mildly dilated. Right Atrium:The right atrium is mildly enlarged. Septum intact Aortic Valve:The aortic valve has three thickened, calcified leaflets with mildly restricted mobilit y. No significant stenosis. There is mild aortic regurgitation. The aortic pressure half-time b y doppler is 653ms. Mitral Valve:Normal appearing mitral valve. No mitral regurgitation. Tricuspid Valve:The tricuspid valve appears structurally normal. Mild tricuspid regurgitation pres ent. The right ventricular systolic pressure, as measured by Doppler, is 35mmHg. Pulmonic Valve:The pulmonic valve is normal. There is no pulmonic regurgitation present. Aorta:The aortic root, ascending aorta and aortic arch appear normal. IVC:No views of IVC, very suboptimal views of subcostal. Pericardium:There is no pericardial effusion. CONCLUSIONS 1. borderline concentric left ventricular hypertrophy with normal systolic function, EF 65%, impaire d relaxation 2. aortic sclerosis with minimal stenosis, mild aortic insufficiency 3. mild rig ht heart dilatation with preserved RV systolic function, mild TR, mild elevation of pulm artery pres sure suggested 4. mild left atrial dilatation, back in NSR cc: Dr. Hamzah Wood Electronically Signed By: Bravo Gonzales MD-- Electronically Signed On: 10:07:04
--- NOTE | 2016-06-11 11:05 | PCM.CARD ---
- Subjective Reason for visit: f/u parox atrial flutter; COPD/NERISSA Subj: joking with nursing staff, in good spirits Denies pain, SOB. Slept well. Vital Signs: Last Vital Signs Temp 97.3 F L 06/11/16 08:39 Pulse 89 06/11/16 08:39 Resp 20 06/11/16 08:39 BP 127/63 06/11/16 08:39 Pulse Ox 97 06/11/16 08:39 Intake & Output 06/08/16 06/09/16 06/10/16 06/11/16 23:59 23:59 23:59 23:59 Intake Total 7 1624 Output Total 650 710 Balance 7 974 -710 Patient's weight 61.348 kg 61.348 kg 62.199 kg PE: Physical Exam GEN: age appropriate, in NAd VS: as above HEENT: no gross JVD seated CHEST: scattered wheeze, diminished breath sounds, no exp prolongation COR: RR, soft s1, s2, Gr 1/6 OSMANI, no s3 ABD: no distention EXTREM: no edema SKIN: warm, dry NEURO: alert, responsive, no focal motor deficit Lab/DI Results Reviewed: Laboratory Tests 06/10/16 06/10/16 06/10/16 05:00 05:00 05:00 Sodium 138 Potassium 5.4 H D Chloride 108 H Carbon Dioxide 21 L BUN 28 H Creatinine 1.10 Estimated GFR (MDRD) > 60 Total Bilirubin 0.4 AST 17 ALT 35 [facility] Pept 2370 H TSH 0.28 L tele: maintaining NSR IMPRESSION: aflutter resolved, back in NSR, loading amio po TSH low - ? suggest lowering levothyroxine dose - Plan PLAN: will d/c diltiazem (1st deg AV block, interacts with amio. - anticipate discharge soon (? today) on amio 200 BID, Eliquis for now - f/u Dr. Wood, and I would be willing to see in f/u (3-5 weeks?) as well. I would plan to d/c Eliquis soon as pt is on anti-platelet therapy as well - ? with TSH low, ? reduce levothyroxine dose, maybe 50 mcg/day?
--- NOTE | 2016-06-11 13:28 | CAPUEKG ---
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 Since prior tracin of 06/09, atrial flutter has resolved. Abnormal ECG Electronically Signed On 06-11-16 13:27:55 EST by Bravo Gonzales <[id number]> [id number]
--- NOTE | 2016-06-11 14:33 | GENMEDPROG ---
Chief Complaint: SOB GONE NO CHEST PAIN NO DIZZINESS Notes Reviewed: Yes: Events from last night noted and discussed with Clinical Staff Current Medication List: Reviewed DVT Prophylaxis: Yes - Physical Examination Vital Signs and I&O: Last Vital Signs Temp 97.6 F 06/11/16 12:24 Pulse 77 06/11/16 12:24 Resp 20 06/11/16 12:24 BP 128/63 06/11/16 12:24 Pulse Ox 94 06/11/16 12:24 Oxygen Pulse Oxygen Saturation 94 O2 Device Room Air Oxygen Flow Rate Fraction of Inspired Oxygen ( FIO2) Intake & Output 06/08/16 06/09/16 06/10/16 06/11/16 23:59 23:59 23:59 23:59 Intake Total 7 1624 565 Output Total 650 1010 Balance 7 974 -445 Patient's weight 61.348 kg 61.348 kg 62.199 kg General: Alert, Cooperative, No acute distress. negative: Obese HEENT: Normal (Normocephalic, atraumatic;EOMI.Sclera white, Nares patent, without discharge or bleeding. No oropharyngeal lesions or erythema. Mucous membranes are dry.) Neck: Non-tender, Full range of motion, Normal Trachea alignment, Normal inspection (No cervical lymphadenopathy. No supraclavicular lymphadenopathy.), No Masses palpable, Supple Lymphatics: Normal (No lymph node swelling or pain.) Respiratory: Accessory Muscle Use, Diminished, Tachypnea Cardiovascular: Regular rate and rhythm (No bradycardia or tachycardia), Normal S1, No Gallops,Rubs/Murmurs, Normal S2, Good Pedal Pulses (DP pulses 2+ bilaterally) GI: Normal bowel sounds (normal active sounds), Soft (non-distended), Non tender , No hepatospenomegaly, No masses Extremities/Musculoskeletal: Normal pulses (DP pulses 2+ bilaterally) Skin: Warm,Dry and Intact, No rashes, No significant lesion Neurological: Strength at 5/5 X4 ext (Motor 5/5 throughout.), Normal tone, Cranial nerves 3-12 NL ( 2-12 grossly intact.) Psych/Mental Status: Appropriate, Normal Affect Lab/DI/Studies Reviewed: 06/10/16 05:00 06/10/16 05:00 - Assessment (1) New onset atrial fibrillation Acute I48.91 - UNSPECIFIED ATRIAL FIBRILLATION Comment/Plan: Back into sinus rhythm now on Cardizem IV and p.o.. IV Cardizem discontinued. Check TSH (2) Elevated alkaline phosphatase level Acute R74.8 - ABNORMAL LEVELS OF OTHER SERUM ENZYMES Comment/Plan: With nausea and vomiting. Could have acute cholecystitis, but cardiac issues need to be addressed first. Plan: Monitor. Consider ultrasound of abdomen. (3) Hypothyroidism Chronic E03.9 - HYPOTHYROIDISM, UNSPECIFIED Qualifiers: Hypothyroidism type: acquired Qualified Code(s): E03.9 - Hypothyroidism, unspecified Comment/Plan: Synthroid replacement is ordered. . (4) COPD (chronic obstructive pulmonary disease) Acute J44.9 - CHRONIC OBSTRUCTIVE PULMONARY DISEASE, UNSPECIFIED Qualifiers: COPD type: emphysema Emphysema type: centrilobular Qualified Code(s): J43.2 - Centrilobular emphysema Comment/Plan: Plan: Duoneb scheduled. PRN Albuterol. Likely at baseline, so will not order methylprednisolone at this time. (5) Hypokalemia Resolved E87.6 - HYPOKALEMIA Comment/Plan: Replaced potassium with KCl. magnesium level is normal. 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
[2016-06-11] MEDS: ROSUVASTATIN 10 MG TAB PO SCH (21:53)
[2016-06-11] MEDS: CLOPIDOGREL 75 MG TAB PO SCH (21:53)
[2016-06-11] MEDS: MIRTAZAPINE 15 MG TAB PO SCH (21:54)
[2016-06-11] MEDS: TEMAZEPAM 15 MG CAP PO PRN (22:02)
[2016-06-12] MEDS: Albuterol/Ipratropium Neb 3 ML NEB NEB SCH ×2 (01:16→07:55)
[2016-06-12 04:17] LABS: AUTOMATED BASOPHIL 0.2 % (0-2); AUTOMATED EOSINOPHIL 0.1 % (0-5); AUTOMATED LYMPH 15.9 % (17-44); AUTOMATED NEUTROPHIL 72.8 % (45-76); MPV 7.5 fL (7.4-10.4)
[2016-06-12 04:29] LABS: BLOOD UREA NITROGEN 18 MG/DL (9-20); CALCIUM 8.5 MG/DL (8.4-10.2); CALCULATED OSMOLALITY 270 MOs/Kg (270-290); CHLORIDE 105 mEq/L (98-107); GLUCOSE 99 mg/dL (70-99); SODIUM LEVEL 139 mEq/L (137-146)
[2016-06-12] MEDS: AMIODARONE 200 MG TAB PO SCH (05:45)
[2016-06-12] MEDS: SODIUM CHLORIDE 0.9% 3 ML FLUSH FLUSH SCH (05:46)
[2016-06-12 05:52] VITALS: BMI 22.8
[2016-06-12 07:20] VITALS: BP 131/66; TEMP 98
--- NOTE | 2016-06-12 07:30 | PCM.CARD ---
- Subjective Reason for visit: For atrial flutter on amiodarone Current Assessment: No New Symptoms. negative: Chest Pain, Dizzines, Orthopnea , Palpitations, Shortness of Breath Vital Signs: Last Vital Signs Temp 98.0 F 06/12/16 07:19 Pulse 77 06/12/16 07:19 Resp 18 06/12/16 07:19 BP 131/66 06/12/16 07:19 Pulse Ox 96 06/12/16 07:19 He remains in sinus rhythm on telemetry Respiratory: Diminished Jugular Vein Distention: None Pulse Rhythm: Regular EKG Rhythm: Sinus Rhythm EKG Ectopy: negative: Runs >10 beats Heart Sounds: Distant. negative: S3, Murmur (no edema) Lab/DI Results Reviewed: Laboratory Tests 06/12/16 06/12/16 03:55 03:55 Hgb 13.2 L Hct 39.6 L Potassium 4.0 D Creatinine 1.10 Estimated GFR (MDRD) > 60 - Assessment/Plan (1) Atrial flutter Acute I48.92 - UNSPECIFIED ATRIAL FLUTTER Present on Admission: Yes Comment/Plan: Reminds in sinus rhythm, continue oral amiodarone load and anticoagulation with Eliquis. After chart review I would not continue Plavix as he has not had recent ACS her stent would be increased risk of hemorrhagic complications of anticoagulation for his atrial fibrillation. Dr. raymond Iniguez has arrangements to see him in the office in follow-up.
[2016-06-12] MEDS: BUDESONIDE 0.5 MG NEB NEB SCH (07:56)
--- NOTE | 2016-06-12 08:17 | PCM.DCS92 ---
- Final/Secondary Discharge Diagnosis (1) New onset atrial fibrillation Chronic I48.91 - UNSPECIFIED ATRIAL FIBRILLATION Present on Admission: Yes Comment: TSH overly suppressed and decreased doses Synthroid continuation of the Lopressor and amiodarone with Eliquis and discontinuation the Plavix is necessary. (2) Elevated alkaline phosphatase level Chronic R74.8 - ABNORMAL LEVELS OF OTHER SERUM ENZYMES Present on Admission: Yes Comment: With nausea and vomiting. Could have acute cholecystitis, but cardiac issues need to be addressed first. Plan: Monitor. Consider ultrasound of abdomen. (3) Hypothyroidism Chronic E03.9 - HYPOTHYROIDISM, UNSPECIFIED Present on Admission: Yes acquired E03.9 - Hypothyroidism, unspecified Comment: Synthroid replacement is ordered. . (4) COPD (chronic obstructive pulmonary disease) Chronic J44.9 - CHRONIC OBSTRUCTIVE PULMONARY DISEASE, UNSPECIFIED Present on Admission: Yes emphysema centrilobular J43.2 - Centrilobular emphysema Comment: Plan: Duoneb scheduled. PRN Albuterol. Likely at baseline, so will not order methylprednisolone at this time. (5) Hypokalemia Resolved E87.6 - HYPOKALEMIA Present on Admission: Yes Comment: Replaced potassium with KCl. magnesium level is normal. 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 Discharge Disposition: Discharge w/ Home Health Discharge Condition: Improved Cognitive Discharge Status: Unimpaired Fuctional Discharge Status: Walker Assistance Physician Follow up/Referrals: Adelso Wood MD [Primary Care Provider] - One Week Home Medications / New Prescriptions: New Amiodarone [Cordarone, Pacerone] 400 mg PO BID #120 tablet Apixaban [Eliquis] 5 mg PO BID #60 tablet Levothyroxine [Synthroid, Levoxyl] 75 mcg PO DAILY #30 tablet Continue Rosuvastatin [Crestor] 10 mg PO HS Ipratropium/Albuterol Sulfate [Combivent Inhaler] 1 puff INH QID PRN PRN Reason: Shortness Of Breath Prednisone 5 mg PO DAILY Nitroglycerin [Nitrostat] 0.4 mg SL Q5MX3 PRN PRN Reason: Chest Pain Or Discomfort Ergocalciferol (Vitamin D2) [Vitamin D2 (ergocalciferol)] 50,000 units PO Mo@ 0900 Budesonide [Pulmicort] 0.5 mg INH BID PRN PRN Reason: Shortness Of Breath Albuterol/Ipratropium Neb [Duoneb] 3 ml NEB Q6H PRN PRN Reason: Shortness Of Breath Metoprolol Tartrate [Lopressor] 25 mg PO BID Guaifenesin [Mucinex] 600 mg PO BID Mirtazapine [Remeron] 30 mg PO HS Aripiprazole [Abilify] 1 mg PO BID Nebulizer [Erapid Nebulizer] 1 each MC .UNKNOWN Tramadol HCl [Ultram] 25 mg PO BID PRN PRN Reason: Pain Discontinued Clopidogrel Bisulfate [Plavix] 75 mg PO HS Levothyroxine [Synthroid, Levoxyl] 88 mcg PO DAILY Diltiazem HCl [Diltiazem ER] 120 mg PO HS Discharge Home Medication List Rosuvastatin [Crestor] 10 mg PO HS 03/26/12 [History Confirmed 06/09/16 Last Taken 06/08/16] Ipratropium/Albuterol Sulfate [Combivent Inhaler] 1 puff INH QID PRN 05/27/12 [ History Confirmed 06/09/16 Last Taken 08/09/12] Prednisone 5 mg PO DAILY 08/04/12 [History Confirmed 06/09/16 Last Taken ] Nitroglycerin [Nitrostat] 0.4 mg SL Q5MX3 PRN 12/20/12 [History Confirmed Last Taken Unknown] Albuterol/Ipratropium Neb [Duoneb] 3 ml NEB Q6H PRN 05/06/16 [History Confirmed 06/09/16 Last Taken 06/09/16] Aripiprazole [Abilify] 1 mg PO BID 05/06/16 [History Confirmed 06/09/16 Last Taken 06/09/16] Budesonide [Pulmicort] 0.5 mg INH BID PRN 05/06/16 [History Confirmed 06/09/16 Last Taken 06/09/16] Ergocalciferol (Vitamin D2) [Vitamin D2 (ergocalciferol)] 50,000 units PO Mo@ 0900 05/06/16 [History Confirmed 06/09/16 Last Taken 06/04/16] Guaifenesin [Mucinex] 600 mg PO BID 05/06/16 [History Confirmed 06/09/16 Last Taken 06/09/16] Metoprolol Tartrate [Lopressor] 25 mg PO BID 05/06/16 [History Confirmed Last Taken 06/09/16] Mirtazapine [Remeron] 30 mg PO HS 05/06/16 [History Confirmed 06/09/16 Last Taken 06/08/16] Nebulizer [Erapid Nebulizer] 1 each MC .UNKNOWN 05/06/16 [History Confirmed 07/21 Last Taken 06/09/16] Tramadol HCl [Ultram] 25 mg PO BID PRN 05/11/16 [History Confirmed 06/09/16 Last Taken 06/09/16] Amiodarone [Cordarone, Pacerone] 400 mg PO BID #120 tablet 06/12/16 [Rx Last Taken Unknown] Apixaban [Eliquis] 5 mg PO BID #60 tablet 06/12/16 [Rx Last Taken Unknown] Levothyroxine [Synthroid, Levoxyl] 75 mcg PO DAILY #30 tablet 06/12/16 [Rx Last Taken Unknown] 06/12/16 03:55 06/12/16 03:55 Laboratory Results - last 24 hr 06/12/16 06/12/16 03:55 03:55 WBC 9.4 RBC 4.54 L Hgb 13.2 L Hct 39.6 L MCV 87 MCH 29.0 MCHC 33.2 RDW 16.5 H Plt Count 215 MPV 7.5 Neut % (Auto) 72.8 Lymph % (Auto) 15.9 L Anderson % (Auto) 11.0 H Eos % (Auto) 0.1 Baso % (Auto) 0.2 Absolute Neuts (auto) 6.77 Absolute Lymphs (auto) 1.41 Sodium 139 Potassium 4.0 D Chloride 105 Carbon Dioxide 25 Anion Gap 13 BUN 18 Creatinine 1.10 Estimated GFR (MDRD) > 60 Glucose 99 Calculated Osmolality 270 Calcium 8.5 O2 Device: Room Air Diet at Discharge: Cardiac, Heart Healthy Activity: As Tolerated - DC Summary Notes HPI/Notes: Patient is an 86-year-old man with atrial fibrillation/FLUTTER, COPD who presents with not feeling well. The patient does not give a thorough history, so his daughter provides some of the history. His daughter states he seemed anxious and was pacing the floor yesterday, and in hindsight she thinks that is when his heart rate started going fast. He reports not feeling well "all over." He denies any chest pain but does have shortness of breath and palpitations along with nausea and vomiting. Onset: last night. Duration: intermittent. Location: all over. Radiation: none. Character: Fast heart rate. Generalized fatigue. Alleviated by: Nothing. Exacerbated by: Nothing. Associated Symptoms: Nausea. Vomiting. No abdominal pain. Shortness of breath. Coughing that is not productive. Wheezing. No chest pain. Not eating well. Headache. Treatments: none at home except usual medications. Hospital Course Note:: Discharge summary on patient named LYLA KOENIG admitted to [facility] on 06/09/16 by Denilson Carlson MD. Date of discharge is 06/12/2016. He was admitted with rapid atrial fib flutter and seen in consultation Dr. Gonzales who recommended he be placed on full anticoagulation stopping the Plavix and Cardizem but continuing with the metoprolol and amiodarone was started. His TSH was overly suppressed at 0.28 and Synthroid dose was dropped to 75 mcg a day. His alkaline phosphatase was elevated so abdominal ultrasound was done showing hepatic steatosis but no evidence of cholelithiasis or gallbladder wall thickening. Feeling better he was anxious to go home today on the loading dose of amiodarone and continuation of his previous metoprolol. Follow up Dr. Gonzales in the next 2 weeks would be prudent. CC: Dr. Janet Wood Total Time: 41 min Code: 92762 (>30min.) - Physical Exam Vital Signs: Last Vital Signs Temp 98.0 F 06/12/16 07:19 Pulse 78 06/12/16 07:56 Resp 18 06/12/16 07:56 BP 131/66 06/12/16 07:19 Pulse Ox 98 06/12/16 07:56 Oxygen Pulse Oxygen Saturation 98 O2 Device Room Air Oxygen Flow Rate Fraction of Inspired Oxygen ( FIO2) Constitutional: Alert, Cachectic, Distress (SHOB), Restless Oriented to: Time, Person, Place - HEENT Head: Normal Eye: Normal. negative: Edema, Pale Conjunctiva, Scleral Icterus Oropharynx: Normal. negative: Membranes Dry ENT EAC: Normal (No oropharyngeal lesions or erythema. Mucous membranes are dry. ) TMJ: Normal Nose: No Symptoms Reported (Nares patent, without discharge or bleeding.) - Respiratory/Cardiovascular Respiratory: Accessory Muscle Use, Diminished. negative: Rales, Rhonchi, Wheezes Cardiovascular: Normal (RRR , Normal S1, S2. No murmurs, rubs, or gallops. PMI non-displaced. Carotids: no carotid bruits. No bradycardia or tachycardia. DP pulses 2+ bilaterally.) - GI Auscultation: Normal Palpation: Normal Tenderness: Non tender Fung's Sign: Negative - Musculoskeletal Back: Normal Extremities: Normal. negative: Clubbing, Cyanosis, Pedal Edema - Integumentary Skin: Normal (Warm dry no rashes) Lymphatics: Normal (No lymph node swelling or pain.) - Neurologic Memory Impaired: Normal Motor Function: Normal (Motor 5/5 throughout.Normal tone, Pulses 2+ No cyanosis or edema, FROM) Cranial Nerve: Normal (CN II-XII intact sensation, strength 5/5) Cerebellar: Normal (Babinski: toes downgoing bilaterally. Intact Finger to nose. Sensory grossly intact to light touch. Intact rapid alternating movements bilaterally. No pronator drift.) Mood Description: Normal, Anxious, Appropriate Thought: Coherent Perception: Normal
[2016-06-12] MEDS: ARIPIPRAZOLE 2 MG TAB PO SCH (08:47)
[2016-06-12] MEDS: PREDNISONE 5 MG TAB PO SCH (08:48)
[2016-06-12] MEDS: GUAIFENESIN 600 MG LA TAB PO SCH (08:48)
[2016-06-12] MEDS: APIXABAN 5 MG TABLET PO SCH (08:48)
[2016-06-12 08:51] VITALS: PULSE 71
[2016-06-12] MEDS ORDERED: LEVOTHYROXINE 75 MCG (0.075 MG) TAB PO SCH (09:00)
[2016-06-12] MEDS ORDERED: ERGOCALCIFEROL (VITAMIN D2) 50000 UNITS CAP PO SCH (09:00)
--- NOTE | 2016-06-12 09:11 | CAPUEKG ---
[place], [place] Test Date: 2016-06-11 Pat Name: LYLA KOENIG Department: Room: 436 Gender: Male [employer] Q[employer] Lab Technician: RICKEY/F : Requested By: Order Number: Reading MD: Dane Winchester MD Measurements Intervals [place] Rate: 84 P: 13 NC: 230 QRS: -35 QRSD: 100 T: 16 QT: 352 QTc: 415 Interpretive Statements Sinus rhythm with 1st degree AV block Left axis deviation Abnormal ECG Electronically Signed On 06-12-16 09:10:22 EST by Dane Winchester MD <[id number]> [id number]
== END 2016-06-12 14:04 | disposition home health service (06) | DRG 309 ==
LOC: ED 17:26 → PCU 19:39
PROVIDERS: ADMIT Internal Medicine; ATTEND Internal Medicine
PROC: 039C3ZZ Drainage of Left Radial Artery, Percutaneous Approach (ICD-10-PCS; principal; 2016-06-09)
DX: I48.0 Paroxysmal atrial fibrillation (principal); J44.1 Chronic obstructive pulmonary disease with (acute) exacerbation; I50.9 Heart failure, unspecified; R74.8 Abnormal levels of other serum enzymes; E03.9 Hypothyroidism, unspecified; E87.6 Hypokalemia; H91.13 Presbycusis, bilateral; I25.10 Atherosclerotic heart disease of native coronary artery without angina pectoris; I10 Essential (primary) hypertension; I25.2 Old myocardial infarction; E78.00 Pure hypercholesterolemia, unspecified; K21.9 Gastro-esophageal reflux disease without esophagitis; M19.90 Unspecified osteoarthritis, unspecified site; M10.9 Gout, unspecified; Z85.828 Personal history of other malignant neoplasm of skin; E11.9 Type 2 diabetes mellitus without complications; F41.8 Other specified anxiety disorders; Z88.8 Allergy status to other drugs, medicaments and biological substances; Z88.1 Allergy status to other antibiotic agents; Z79.899 Other long term (current) drug therapy; G47.33 Obstructive sleep apnea (adult) (pediatric)
CPT/HCPCS: 36415; 36600; 71010; 76705; 80048; 80053; 82803; 83735; 83880; 84443; 84484; 85025; 85027; 85610; 85730; 93005; 93306; 94640; 96365; 96366; 96372; 96375; 97161; 98960; 99284; G0237; J1650; J2405; J2930; J3490; J7040; J7060; J7620